=== PATIENT | female | born 1950 | race Caucasian/White ===

== ENCOUNTER 2021-12-01 08:10 | Emergency (ER) | payer OTHER ==
[2021-12-01] MEDS ORDERED: HYDROcodone/Acetaminophen 5/325 mg Tablet ONE (09:10)
[2021-12-01] MEDS ORDERED: Boostrix 0.5 ML (Tdap) VIAL (>/=7 yrs of age) ONE (09:11)
[2021-12-01] MEDS ORDERED: Bacitracin 1 PK ONE (10:48)
== END 2021-12-01 11:30 | disposition home or self-care (01) ==
LOC: NAV ERS 08:10
DX: S51.811A Laceration without foreign body of right forearm, initial encounter (principal); S91.201A Unspecified open wound of right great toe with damage to nail, initial encounter; S83.91XA Sprain of unspecified site of right knee, initial encounter; S93.401A Sprain of unspecified ligament of right ankle, initial encounter; I10 Essential (primary) hypertension; Z79.899 Other long term (current) drug therapy; W19.XXXA Unspecified fall, initial encounter
CPT/HCPCS: 70450; 72125; 72128; 72131; 90471; 90715

== ENCOUNTER 2022-04-17 17:13 | Emergency (ER) | payer MEDICARE, SELFPAY ==
[2022-04-17] MEDS ORDERED: Bacitracin 1 PK ONE (17:31)
== END 2022-04-17 17:43 | disposition home or self-care (01) ==
LOC: NAV ERS 17:13
DX: S51.812A Laceration without foreign body of left forearm, initial encounter (principal); I10 Essential (primary) hypertension; Z79.899 Other long term (current) drug therapy; W22.8XXA Striking against or struck by other objects, initial encounter
CPT/HCPCS: 99283